=== PATIENT | male | born 1990 | race Caucasian/White ===

== ENCOUNTER 2017-12-04 05:28 | Emergency (ER) | payer OTHER, BC ==
[2017-12-04] MEDS: HYDROcodone/APAP 5/325MG 1 TAB TABLET PO (06:03)
== END 2017-12-04 06:11 | disposition home or self-care (01) ==
LOC: ER 05:28
DX: S52.501A Unspecified fracture of the lower end of right radius, initial encounter for closed fracture (principal); J45.909 Unspecified asthma, uncomplicated; W00.9XXA Unspecified fall due to ice and snow, initial encounter; Y93.89 Activity, other specified; Y92.89 Other specified places as the place of occurrence of the external cause; Y99.8 Other external cause status
CPT/HCPCS: 29125; 73110; 99284-25